=== PATIENT | female | born 1975 | race Caucasian/White ===

== ENCOUNTER 2016-09-29 23:00 | Emergency (ER) | payer OTHER ==
[2016-09-29] MEDS ORDERED: IOPAMIDOL 300 (61%) 100 ML VIAL IV ONE (23:01)
[2016-09-29 23:30] LABS: SPECIFIC GRAVITY 1.015 (1.001-1.030); URINE BILIRUBIN NEGATIVE (NEGATIVE); URINE BLOOD NEGATIVE (NEGATIVE); URINE GLUCOSE (UA) NEGATIVE (NEGATIVE); URINE LEUKOCYTE ESTERASE NEGATIVE (NEGATIVE); URINE NITRITE NEGATIVE (NEGATIVE); URINE PROTEIN NEGATIVE (NEGATIVE); URINE UROBILINOGEN NORMAL (0-1 mg/dl)
[2016-09-29 23:34] LABS: HCG,QUALITATIVE URINE NEGATIVE
[2016-09-29 23:36] LABS: URINE APPEARANCE CLEAR; URINE COLOR YELLOW
[2016-09-30] MEDS ORDERED: SODIUM CHLORIDE 0.9% 1,000 ML ONE (00:20)
[2016-09-30] MEDS ORDERED: KETOROLAC TROMETHAMINE 30 MG/ML 1 ML VIAL ONE (00:20)
[2016-09-30 00:43] LABS: ABSOLUTE NEUTROPHIL COUNT 5.6 K/mm3 (1.8-7.7); BASO # 0.1 K/mm3 (0.0-0.2); BASO % 0.5 % (0.2-1.0); EOS # 0.1 (0.0-0.5); EOS % 1.4 % (0.9-2.9); HEMATOCRIT 38.9 % (37.0-47.0); HEMOGLOBIN 12.9 gm/l (12.0-16.0); IMM NEUT% 0.2 % (0-1); LYMPH # 3.2 (1.0-4.8); MEAN CELL VOLUME 95.8 fl (81.0-99.0); MEAN CORPUSCULAR HEMOGLOBIN 31.8 pg (27.0-31.0); MEAN CORPUSCULAR HGB CONC 33.2 g/dl (33.0-37.0); MEAN PLATELET VOLUME 9.6 fl (7.4-10.4); MONO # 0.7 (0.0-0.8); MONO % 7.5 % (4-12); NEUT % 57.4 % (43-75); PLATELET COUNT 334 K/mm3 (130-400); RED CELL DISTRIBUTION WIDTH 12.5 % (11.5-14.5)
[2016-09-30 00:52] LABS: ALB/GLOB RATIO 1.7 (>1.0); ALBUMIN 4.2 gm/dL (3.5-5.7); CALCIUM 9.3 mg/dL (8.6-10.3)
--- NOTE | 2016-09-30 08:36 | CT ---
CT ABDOMEN AND PELVIS WITH CONTRAST HISTORY: Right lower quadrant pain x4 hours. TECHNIQUE: Following intravenous administration of 100 mL is, contiguous axial images were acquired from the lung bases to the ischial tuberosities. Oral contrast was not administered. COMPARISON:None. FINDINGS: LUNG BASES: No gross airspace consolidation or pleural effusion. 3 mm nodule of the right middle lobe, image 5. LIVER: No focal lesion. SPLEEN: No focal lesion. PANCREAS: No focal lesion. ADRENAL GLANDS: No mass effect. KIDNEYS: No focal lesion. No collecting system dilatation. GALLBLADDER: Likely absent. Borderline prominence of extrahepatic biliary tree. BOWEL: Moderate fecal loading. Limited assessment of the distal colon due to decompression. No abnormal small bowel dilatation. APPENDIX: Normal gas-filled appendix. PELVIC ORGANS: No gross mass effect. FREE FLUID: Minimal pelvic free fluid, which may be physiologic. ABDOMINOPELVIC LYMPH NODES: No abnormally enlarged lymph nodes identified. ABDOMINAL AORTA: Normal caliber. 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 No destructive lesions. IMPRESSION: 1. Normal appendix. Noninflammatory, nonobstructive appearance of bowel with moderate fecal load. 2. Dominant adnexal mass lesion. Minor free fluid, which is nonspecific, but which may simply be physiologic in nature. 3. Mild prominence of extrahepatic biliary tree, a common finding status post cholecystectomy. 4. 3 mm nodule of the right middle lobe, recommend 12 month follow-up if the patient has a smoking history or personal history of neoplasm. Preliminary report relayed to the Emergency Medicine medical service by Dr. Zhou on 09/30/2016 at 0120 hours.
== END 2016-09-30 01:45 | disposition home or self-care (01) ==
LOC: ED 23:00
DX: R10.31 Right lower quadrant pain (principal)
CPT/HCPCS: 83690; 81025; 85025; 80053; 81003; 74177; 99284 ×2; 96374; J1885; J7030; Q9967